=== PATIENT | female | born 1935 | race Asian ===

== ENCOUNTER 2017-09-02 18:52 | Inpatient (IN) | payer MEDICARE, MEDICAID ==
[~2017-09-02] VITALS: Ht 162.6 cm; Wt 49.9 kg
[2017-09-02] MEDS ORDERED: Isovue-300 100ml vial INJ PRN (19:45)
[2017-09-02] MEDS ORDERED: Ampicillin/Sulbactam Sod 3 GM in NS 110 ML IV SCH (19:45)
[2017-09-02] MEDS ORDERED: Pantoprazole Inj IVP ONE (20:15)
[2017-09-02] MEDS ORDERED: Aspirin Baby 81mg ORAL ONE (20:15)
[2017-09-02] MEDS ORDERED: Pantoprazole Inj ONE (20:18)
[2017-09-02] MEDS ORDERED: Aspirin Baby 81mg ONE (20:18)
[2017-09-02 20:26] LABS: BASOPHILS % (AUTO) 0.9 % (0.0-2.0); EOSINOPHILS % (AUTO) 0.8 % (0.0-3.0); HEMATOCRIT 34.1 % (37.0-47.0); HEMOGLOBIN 12.2 G/DL (12.0-16.0); LYMPHOCYTES % (AUTO) 19.9 % (20.0-45.0); MEAN CORPUSCULAR VOLUME 90 FL (80-99); MONOCYTES % (AUTO) 9.2 % (1.0-10.0); NEUTROPHILS % (AUTO) 69.2 % (45.0-75.0); PLATELET COUNT 202 K/UL (150-450); RED BLOOD COUNT 3.79 M/UL (4.20-5.40); RED CELL DISTRIBUTION WIDTH 11.7 % (11.6-14.8); WHITE BLOOD COUNT 6.5 K/UL (4.8-10.8)
[2017-09-02 20:35] VITALS: BP 121/48
[2017-09-02 20:43] LABS: ANION GAP 12 mmol/L (5-15); BLOOD UREA NITROGEN 26 mg/dL (7-18); CALCIUM 9.3 MG/DL (8.5-10.1); CARBON DIOXIDE 21 MMOL/L (21-32); CHLORIDE 103 MMOL/L (98-107); CREATININE 2.1 MG/DL (0.55-1.30); POTASSIUM 4.1 MMOL/L (3.5-5.1); SODIUM 136 MMOL/L (136-145)
[2017-09-02 20:57] LABS: ALANINE AMINOTRANSFERASE 22 U/L (12-78); ALBUMIN 3.3 G/DL (3.4-5.0); ALBUMIN/GLOBULIN RATIO 0.9 (1.0-2.7); ALKALINE PHOSPHATASE 46 U/L (46-116); ASPARTATE AMINO TRANSFERASE 15 U/L (15-37); BILIRUBIN,TOTAL 0.5 MG/DL (0.2-1.0); CKMB 0.7 NG/ML (0.0-3.6); CREATINE KINASE 38 U/L (26-308); PHOSPHORUS 4.1 MG/DL (2.5-4.9)
--- NOTE | 2017-09-02 21:28 | Diagnostic Imaging Report ---
EXAM: XR Chest, 1 View CLINICAL HISTORY: SOB TECHNIQUE: Frontal view of the chest. COMPARISON: No relevant prior studies available. FINDINGS: Lungs: Peribronchial thickening without infiltrate. Pleural space: Unremarkable. No pneumothorax. Heart: Unremarkable. No cardiomegaly. Mediastinum: Unremarkable. Bones/joints: Unremarkable. IMPRESSION: Peribronchial thickening without infiltrate.
[2017-09-02 21:35] VITALS: BP 114/49
[2017-09-02 21:53] LABS: APPEARANCE,URINE CLEAR; BILIRUBIN, URINE NEGATIVE (NEGATIVE); COLOR,URINE PALE YELLOW; GLUCOSE, URINE (UA) 4+ (NEGATIVE); KETONES,URINE NEGATIVE (NEGATIVE); LEUKOCYTE ESTERASE ,URINE 1+ (NEGATIVE); NITRITE,URINE NEGATIVE (NEGATIVE); PH,URINE 5 (4.5-8.0); PROTEIN,URINE 1+ (NEGATIVE); UROBILINOGEN,URINE NORMAL MG/DL (0.0-1.0)
--- NOTE | 2017-09-02 21:59 | Diagnostic Imaging Report ---
EXAM: CT Abdomen and Pelvis Without Intravenous Contrast CLINICAL HISTORY: PAIN TECHNIQUE: Axial computed tomography images of the abdomen and pelvis without intravenous contrast. CTDI is 19 mGy and DLP is 992 mGy-cm. One or more of the following dose reduction techniques were used: automated exposure control, adjustment of the mA and/or kV according to patient size, use of iterative reconstruction technique. COMPARISON: No relevant prior studies available. FINDINGS: Bibasilar peribronchial thickening. Cardiomegaly. Cholelithiasis. Liver, spleen, pancreas, and adrenals are unremarkable. Small amount of gas in the urinary bladder. No hydronephrosis or nephrolithiasis. Large duodenal diverticulum. No bowel obstruction or wall thickening. No ascites or pneumoperitoneum. No acute appendicitis. No adnexal mass. No acute fracture. No suspicious osseous lesions. No aortic aneurysm or lymphadenopathy. IMPRESSION: Cholelithiasis without evidence for cholecystitis or dilated CBD. Small amount of gas in the bladder is nonspecific but could represent infection.
[2017-09-02 22:25] VITALS: BP 145/67
[2017-09-02] MEDS: Heparin 5000 units/ml inj SUBQ SCH (22:44)
--- NOTE | 2017-09-02 23:04 | Emergency Room Report ---
History of Present Illness General Chief Complaint: Generalized Weakness Source: Patient, EMS Present Illness HPI Patient is an 82-year-old female brought in by EMS. The patient poorly has prior history of diabetes as well as high blood pressure. The patient was noted to be somewhat confused by her rim buster. The patient was subsequently brought to the hospital. She was noted to be hypotensive. Patient was started on IV fluids. Patient. He said been taking medications for blood pressure but does not recall the names. Patient had previous hospitalization approximately one year ago. Allergies: Coded Allergies: No Known Allergies (Unverified , 09/02/17) Patient History Reviewed Nursing Documentation: PMH: Agreed; PSxH: Agreed Nursing Documentation-PMH Hx Hypertension: Yes Hx Diabetes: Yes Hx Seizures: Yes Review of Systems All Other Systems: negative except mentioned in HPI Physical Exam Vital Signs Date Time Temp Pulse Resp B/P (MAP) Pulse Ox O2 Delivery O2 Flow Rate FiO2 09/02/17 18:40 98.4 86 16 106/46 98 Room Air 98.4 Sp02 EP Interpretation: reviewed, normal General Appearance: normal inspection, well appearing, no apparent distress, alert, GCS 15, non-toxic Head: atraumatic ENT: normal ENT inspection, hearing grossly normal, normal voice Neck: normal inspection, full range of motion, supple, no bony tend Respiratory: normal inspection, lungs clear, normal breath sounds, no respiratory distress, no retraction, no wheezing Cardiovascular #1: regular rate, rhythm, no edema Gastrointestinal: normal inspection, normal bowel sounds, non tender, soft, no guarding, no hernia Genitourinary: no CVA tenderness Musculoskeletal: normal inspection, back normal, normal range of motion Neurologic: normal inspection, alert, responsive, speech normal Psychiatric: normal inspection, judgement/insight normal, mood/affect normal Skin: normal inspection, normal color, no rash Medical Decision Making Diagnostic Impression: Primary Impression: Episode of generalized weakness Additional Impression: Hypotension ER Course Patient presented for generalized weakness. Differential diagnoses included was not limited to urinary tract infection, myocardial infarction, abdominal aneurysm, sepsis, dehydration among others.Because of complexity of patient's case laboratory testing and imaging studies were ordered. The EKG interpreted by me showed normal sinus rhythm. The patient was noted to have some the ST changes which do not appear to be dynamically changing. The patient's initial troponin was noted to be normal. Had denied any chest discomfort and was noted to be more alert after IV fluids. Patient denied any chest discomfort or abdominal discomfort when questioned by her relative. The patient was discussed with Dr. Elvis Parnell for Dr. Angulo Labs Test 09/02/17 20:10 09/02/17 21:00 White Blood Count 6.5 K/UL (4.8-10.8) Red Blood Count 3.79 M/UL (4.20-5.40) Hemoglobin 12.2 G/DL (12.0-16.0) Hematocrit 34.1 % (37.0-47.0) Mean Corpuscular Volume 90 FL (80-99) Mean Corpuscular Hemoglobin 32.3 PG (27.0-31.0) Mean Corpuscular Hemoglobin Concent 35.8 G/DL (32.0-36.0) Red Cell Distribution Width 11.7 % (11.6-14.8) Platelet Count 202 K/UL (150-450) Mean Platelet Volume 6.8 FL (6.5-10.1) Neutrophils (%) (Auto) 69.2 % (45.0-75.0) Lymphocytes (%) (Auto) 19.9 % (20.0-45.0) Monocytes (%) (Auto) 9.2 % (1.0-10.0) Eosinophils (%) (Auto) 0.8 % (0.0-3.0) Basophils (%) (Auto) 0.9 % (0.0-2.0) Sodium Level 136 MMOL/L (136-145) Potassium Level 4.1 MMOL/L (3.5-5.1) Chloride Level 103 MMOL/L (98-107) Carbon Dioxide Level 21 MMOL/L (21-32) Anion Gap 12 mmol/L (5-15) Blood Urea Nitrogen 26 mg/dL (7-18) Creatinine 2.1 MG/DL (0.55-1.30) Estimat Glomerular Filtration Rate mL/min (>60) Glucose Level 130 MG/DL (74-106) Lactic Acid Level 1.60 mmol/L (0.4-2.0) Calcium Level 9.3 MG/DL (8.5-10.1) Phosphorus Level 4.1 MG/DL (2.5-4.9) Magnesium Level 1.9 MG/DL (1.8-2.4) Total Bilirubin 0.5 MG/DL (0.2-1.0) Aspartate Amino Transf (AST/SGOT) 15 U/L (15-37) Alanine Aminotransferase (ALT/SGPT) 22 U/L (12-78) Alkaline Phosphatase 46 U/L (46-116) Total Creatine Kinase 38 U/L (26-308) Creatine Kinase MB 0.7 NG/ML (0.0-3.6) Creatine Kinase MB Relative Index 1.8 Troponin I 0.015 ng/mL (0.000-0.056) Total Protein 6.9 G/DL (6.4-8.2) Albumin 3.3 G/DL (3.4-5.0) Globulin 3.6 g/dL Albumin/Globulin Ratio 0.9 (1.0-2.7) Urine Color Pale yellow Urine Appearance Clear Urine pH 5 (4.5-8.0) Urine Specific [place] 1.015 (1.005-1.035) Urine Protein 1+ (NEGATIVE) Urine Glucose (UA) 4+ (NEGATIVE) Urine Ketones Negative (NEGATIVE) Urine Occult Blood Negative (NEGATIVE) Urine Nitrite Negative (NEGATIVE) Urine Bilirubin Negative (NEGATIVE) Urine Urobilinogen Normal MG/DL (0.0-1.0) Urine Leukocyte Esterase 1+ (NEGATIVE) Urine RBC 0-2 /HPF (0 - 2) Urine WBC 2-4 /HPF (0 - 2) Urine Squamous Epithelial Cells None /LPF (NONE/OCC) Urine Bacteria Occasional /HPF (NONE) EKG Diagnostic Results Rate: normal Rhythm: NSR ST Segments: other - nonspecific st changes, inferior st depression Last Vital Signs Date Time Temp Pulse Resp B/P (MAP) Pulse Ox O2 Delivery O2 Flow Rate FiO2 09/02/17 22:30 98.4 61 16 114/49 99 Room Air 98.4 Status: improved Disposition: ADMITTED INPATIENT Condition: Serious Referrals: NOT CHOSEN IPA/,REFERRING (PCP) Lit Rider MD Sep 02, 2017 23:03
[2017-09-02] MEDS ORDERED: Cefepime HCl 1 GM in D5W 55 ML IVPB SCH (23:45)
[2017-09-03] VITALS: BP 115/54
[2017-09-03] MEDS ORDERED: KEPPRA500 M4 ORAL (00:18)
[2017-09-03] MEDS ORDERED: AZOR 10-40 MG1 EACH ORAL (00:18)
[2017-09-03] MEDS ORDERED: JANUMET XR 1001 EACH ORAL (00:18)
[2017-09-03] MEDS ORDERED: AMITIZA24 MCG ORAL (00:18)
[2017-09-03] MEDS ORDERED: LINZESS290 MCG PO (00:18)
[2017-09-03] MEDS ORDERED: CATAPRES0.2 MG ORAL (00:18)
[2017-09-03] MEDS ORDERED: NAMZARIC 28 MG1 EACH PO (00:18)
[2017-09-03] MEDS ORDERED: Vancomycin 750mg/NS 250ml IVPB SCH (02:00)
[2017-09-03 03:53] VITALS: BP 121/59
[2017-09-03] MEDS: Heparin 5000 units/ml inj SUBQ SCH ×3 (05:42→21:04)
[2017-09-03 08:00] VITALS: BP 116/65
[2017-09-03] MEDS ORDERED: Aspirin Baby 81mg ORAL SCH (09:00)
[2017-09-03] MEDS ORDERED: Memantine 10mg tab ORAL SCH (09:00)
[2017-09-03] MEDS ORDERED: Amitiza 24mcg cap ORAL SCH (09:00)
[2017-09-03] MEDS ORDERED: NS 275ml ONE (09:27)
[2017-09-03 10:49] LABS: BASOPHILS % (AUTO) 1.3 % (0.0-2.0); EOSINOPHILS % (AUTO) 1.4 % (0.0-3.0); HEMATOCRIT 35.5 % (37.0-47.0); LYMPHOCYTES % (AUTO) 17.7 % (20.0-45.0); MEAN CORPUSCULAR VOLUME 93 FL (80-99); MONOCYTES % (AUTO) 8.7 % (1.0-10.0); PLATELET COUNT 202 K/UL (150-450); RED BLOOD COUNT 3.84 M/UL (4.20-5.40); WHITE BLOOD COUNT 4.7 K/UL (4.8-10.8)
[2017-09-03 10:54] LABS: ANION GAP 12 mmol/L (5-15); BLOOD UREA NITROGEN 20 mg/dL (7-18); CALCIUM 8.2 MG/DL (8.5-10.1); CARBON DIOXIDE 21 MMOL/L (21-32); CHLORIDE 106 MMOL/L (98-107); CREATININE 1.7 MG/DL (0.55-1.30); POTASSIUM 3.9 MMOL/L (3.5-5.1); SODIUM 138 MMOL/L (136-145)
[2017-09-03] MEDS ORDERED: NovoLOG Insulin Flexpen SUBQ SCH (11:30)
[2017-09-03 12:00] VITALS: BP 101/53
[2017-09-03] MEDS: NovoLOG Insulin Flexpen SUBQ SCH ×3 (12:01→21:10)
--- NOTE | 2017-09-03 12:22 | Infectious Diseases Prog Note ---
Assessment/Plan Problems: (1) Bronchitis Assessment & Plan: will start cefepime empirically to cover for UTI too , monitor CXR (2) UTI (urinary tract infection) Assessment & Plan: will start cefepime pending culture (3) Sepsis Assessment & Plan: due to the above, will start vancomycin with cefepime empirically pending blood culture (4) Hypotension Assessment & Plan: possbile sepsis, continue hydration and wide spectrum antibiotics pending culture (5) Episode of generalized weakness Assessment & Plan: due to the above , continue hydration , PT/OT Subjective Allergies: Coded Allergies: No Known Allergies (Unverified , 09/02/17) Objective Vital Signs Last 24 Hour Vital Signs Date Time Temp Pulse Resp B/P (MAP) Pulse Ox O2 Delivery O2 Flow Rate FiO2 09/03/17 09:00 63 116/65 09/03/17 08:00 75 09/03/17 08:00 97.7 63 21 116/65 (82) 95 97.7 09/03/17 08:00 Room Air 09/03/17 04:00 59 09/03/17 04:00 Room Air 09/03/17 03:53 97.2 60 20 121/59 (79) 98 97.2 09/03/17 00:00 55 09/03/17 00:00 97.7 54 20 115/54 (74) 97 97.7 09/03/17 00:00 Room Air 09/02/17 22:30 98.4 61 16 114/49 99 Room Air 98.4 09/02/17 22:29 64 09/02/17 22:25 Room Air 09/02/17 22:25 97.3 60 16 145/67 (93) 97.3 09/02/17 21:35 98.4 61 16 114/49 99 Room Air 98.4 09/02/17 20:35 98.4 59 16 121/48 100 Room Air 98.4 09/02/17 18:40 98.4 86 16 106/46 98 Room Air 98.4 Height (Feet): 5 Height (Inches): 4.00 Weight (Pounds): 110 Laboratory Tests Test 09/02/17 20:10 09/02/17 21:00 09/03/17 05:45 09/03/17 09:35 White Blood Count 6.5 K/UL (4.8-10.8) 4.7 K/UL (4.8-10.8) L Red Blood Count 3.79 M/UL (4.20-5.40) L 3.84 M/UL (4.20-5.40) L Hemoglobin 12.2 G/DL (12.0-16.0) 12.0 G/DL (12.0-16.0) Hematocrit 34.1 % (37.0-47.0) L 35.5 % (37.0-47.0) L Mean Corpuscular Volume 90 FL (80-99) 93 FL (80-99) Mean Corpuscular Hemoglobin 32.3 PG (27.0-31.0) H 31.3 PG (27.0-31.0) H Mean Corpuscular Hemoglobin Concent 35.8 G/DL (32.0-36.0) 33.8 G/DL (32.0-36.0) Red Cell Distribution Width 11.7 % (11.6-14.8) 12.0 % (11.6-14.8) Platelet Count 202 K/UL (150-450) 202 K/UL (150-450) Mean Platelet Volume 6.8 FL (6.5-10.1) 6.9 FL (6.5-10.1) Neutrophils (%) (Auto) 69.2 % (45.0-75.0) 71.0 % (45.0-75.0) Lymphocytes (%) (Auto) 19.9 % (20.0-45.0) L 17.7 % (20.0-45.0) L Monocytes (%) (Auto) 9.2 % (1.0-10.0) 8.7 % (1.0-10.0) Eosinophils (%) (Auto) 0.8 % (0.0-3.0) 1.4 % (0.0-3.0) Basophils (%) (Auto) 0.9 % (0.0-2.0) 1.3 % (0.0-2.0) Sodium Level 136 MMOL/L (136-145) 138 MMOL/L (136-145) Potassium Level 4.1 MMOL/L (3.5-5.1) 3.9 MMOL/L (3.5-5.1) Chloride Level 103 MMOL/L (98-107) 106 MMOL/L (98-107) Carbon Dioxide Level 21 MMOL/L (21-32) 21 MMOL/L (21-32) Anion Gap 12 mmol/L (5-15) 12 mmol/L (5-15) Blood Urea Nitrogen 26 mg/dL (7-18) H 20 mg/dL (7-18) H Creatinine 2.1 MG/DL (0.55-1.30) H 1.7 MG/DL (0.55-1.30) H Estimat Glomerular Filtration Rate mL/min (>60) mL/min (>60) Glucose Level 130 MG/DL (74-106) H 150 MG/DL (74-106) H Lactic Acid Level 1.60 mmol/L (0.4-2.0) Calcium Level 9.3 MG/DL (8.5-10.1) 8.2 MG/DL (8.5-10.1) L Phosphorus Level 4.1 MG/DL (2.5-4.9) Magnesium Level 1.9 MG/DL (1.8-2.4) Total Bilirubin 0.5 MG/DL (0.2-1.0) Aspartate Amino Transf (AST/SGOT) 15 U/L (15-37) Alanine Aminotransferase (ALT/SGPT) 22 U/L (12-78) Alkaline Phosphatase 46 U/L (46-116) Total Creatine Kinase 38 U/L (26-308) Creatine Kinase MB 0.7 NG/ML (0.0-3.6) Creatine Kinase MB Relative Index 1.8 Troponin I 0.015 ng/mL (0.000-0.056) 0.030 ng/mL (0.000-0.056) 0.014 ng/mL (0.000-0.056) Total Protein 6.9 G/DL (6.4-8.2) Albumin 3.3 G/DL (3.4-5.0) L Globulin 3.6 g/dL Albumin/Globulin Ratio 0.9 (1.0-2.7) L Urine Color Pale yellow Urine Appearance Clear Urine pH 5 (4.5-8.0) Urine Specific [place] 1.015 (1.005-1.035) Urine Protein 1+ (NEGATIVE) H Urine Glucose (UA) 4+ (NEGATIVE) H Urine Ketones Negative (NEGATIVE) Urine Occult Blood Negative (NEGATIVE) Urine Nitrite Negative (NEGATIVE) Urine Bilirubin Negative (NEGATIVE) Urine Urobilinogen Normal MG/DL (0.0-1.0) Urine Leukocyte Esterase 1+ (NEGATIVE) H Urine RBC 0-2 /HPF (0 - 2) Urine WBC 2-4 /HPF (0 - 2) Urine Squamous Epithelial Cells None /LPF (NONE/OCC) Urine Bacteria Occasional /HPF (NONE) Current Medications Medications (Trade) Dose Ordered Sig/Monica Route PRN Reason Start Time Stop Time Status Last Admin Dose Admin Acetaminophen (Tylenol) 650 mg Q4H PRN ORAL Mild Pain (Pain Scale 1-3) 09/03/17 11:00 10/02/17 10:59 Amlodipine Besylate (Norvasc) 10 mg DAILY ORAL 09/04/17 09:00 10/03/17 08:59 Aspirin (ASA) 81 mg DAILY ORAL 09/04/17 09:00 10/03/17 08:59 Cefepime HCl 500 mg/Dextrose 55 ml @ 110 mls/hr Q24H IVPB 09/03/17 23:30 09/10/17 23:29 Dextrose (Dextrose 50%) 25 ml STAT PRN IV Hypoglycemia 09/03/17 11:00 10/02/17 10:59 Dextrose (Dextrose 50%) 50 ml STAT PRN IV Hypoglycemia 09/03/17 11:00 10/02/17 10:59 Diphenhydramine HCl (Benadryl) 25 mg Q6H PRN ORAL Itching/Pruritis 09/03/17 11:00 10/02/17 10:59 Donepezil HCl (Aricept) 10 mg QHS ORAL 09/03/17 21:00 10/03/17 20:59 Heparin Sodium (Porcine) (Heparin 5000 units/ml) 5,000 units EVERY 8 HOURS SUBQ 09/03/17 14:00 10/02/17 21:59 Insulin Aspart (NovoLOG) BEFORE MEALS AND HS SUBQ 09/03/17 11:30 10/03/17 11:29 09/03/17 12:01 Levetiracetam (Keppra) 500 mg Q12HR ORAL 09/03/17 21:00 10/03/17 08:59 Lubiprostone (Amitiza) 24 mcg TWICE A DAY ORAL 09/03/17 18:00 10/03/17 08:59 Memantine (Namenda) 10 mg DAILY ORAL 09/04/17 09:00 10/03/17 08:59 Ondansetron HCl (Zofran) 4 mg Q6H PRN IVP Nausea & Vomiting 09/03/17 11:00 10/02/17 10:59 Sodium Chloride 1,000 ml @ 100 mls/hr Q10H IVLG 09/03/17 10:30 10/02/17 22:59 09/03/17 12:01 Vancomycin HCl (Vanco rx to dose) 1 ea DAILY PRN MISC Per rx protocol 09/04/17 09:00 10/02/17 22:44 Vancomycin/Sodium Chloride 250 ml @ 166.667 mls/hr Q48H IVPB 09/05/17 02:00 09/08/17 01:59 Nandini Sosa M.D. Sep 03, 2017 12:22
--- NOTE | 2017-09-03 13:01 | Diagnostic Imaging Report ---
EXAM: US Retroperitoneal Limited, Renal CLINICAL HISTORY: RENAL-A TECHNIQUE: Real-time ultrasound of the retroperitoneum (limited) with image documentation. COMPARISON: CT of the abdomen and pelvis dated FINDINGS: Right kidney: The right kidney measures 8.6 x 4.4 x 3.3 cm. Subcentimeter simple-appearing cortical cyst in the right kidney, measuring 10 mm and 9 mm in diameter respectively. No stones. No hydronephrosis. Left kidney: Small simple appearing cortical cysts are seen in the mid left kidney, measuring 12 mm and 9 mm respectively. Left kidney measures 10.3 x 5.4 x 5.1 cm. No stones. No hydronephrosis. Bladder: Doppler interrogation demonstrates bilateral ureteral jets within the urinary bladder lumen. Prevoid urinary bladder volume of 423 cc. Postvoid urinary bladder volume of 350 cc. IMPRESSION: Bilateral simple-appearing renal cortical cysts, largest measuring 12 mm in the mid left kidney.
--- NOTE | 2017-09-03 14:34 | Cardiac Electrophysiology PN ---
Subjective Subjective [id number] Objective Last 24 Hour Vital Signs Date Time Temp Pulse Resp B/P (MAP) Pulse Ox O2 Delivery O2 Flow Rate FiO2 09/03/17 12:00 97.7 69 18 101/53 (69) 97 97.7 09/03/17 09:00 63 116/65 09/03/17 08:00 75 09/03/17 08:00 97.7 63 21 116/65 (82) 95 97.7 09/03/17 08:00 Room Air 09/03/17 04:00 59 09/03/17 04:00 Room Air 09/03/17 03:53 97.2 60 20 121/59 (79) 98 97.2 09/03/17 00:00 55 09/03/17 00:00 97.7 54 20 115/54 (74) 97 97.7 09/03/17 00:00 Room Air 09/02/17 22:30 98.4 61 16 114/49 99 Room Air 98.4 09/02/17 22:29 64 09/02/17 22:25 Room Air 09/02/17 22:25 97.3 60 16 145/67 (93) 97.3 09/02/17 21:35 98.4 61 16 114/49 99 Room Air 98.4 09/02/17 20:35 98.4 59 16 121/48 100 Room Air 98.4 09/02/17 18:40 98.4 86 16 106/46 98 Room Air 98.4 Intake and Output 09/02/17 09/03/17 19:00 07:00 Intake Total 3293.334 ml Output Total 800 ml Balance 2493.334 ml Intake Oral 490 ml IV Total 2803.334 ml Output Urine Total 800 ml # Voids 3 Laboratory Tests Test 09/02/17 20:10 09/02/17 21:00 09/03/17 05:45 09/03/17 09:35 White Blood Count 6.5 K/UL (4.8-10.8) 4.7 K/UL (4.8-10.8) L Red Blood Count 3.79 M/UL (4.20-5.40) L 3.84 M/UL (4.20-5.40) L Hemoglobin 12.2 G/DL (12.0-16.0) 12.0 G/DL (12.0-16.0) Hematocrit 34.1 % (37.0-47.0) L 35.5 % (37.0-47.0) L Mean Corpuscular Volume 90 FL (80-99) 93 FL (80-99) Mean Corpuscular Hemoglobin 32.3 PG (27.0-31.0) H 31.3 PG (27.0-31.0) H Mean Corpuscular Hemoglobin Concent 35.8 G/DL (32.0-36.0) 33.8 G/DL (32.0-36.0) Red Cell Distribution Width 11.7 % (11.6-14.8) 12.0 % (11.6-14.8) Platelet Count 202 K/UL (150-450) 202 K/UL (150-450) Mean Platelet Volume 6.8 FL (6.5-10.1) 6.9 FL (6.5-10.1) Neutrophils (%) (Auto) 69.2 % (45.0-75.0) 71.0 % (45.0-75.0) Lymphocytes (%) (Auto) 19.9 % (20.0-45.0) L 17.7 % (20.0-45.0) L Monocytes (%) (Auto) 9.2 % (1.0-10.0) 8.7 % (1.0-10.0) Eosinophils (%) (Auto) 0.8 % (0.0-3.0) 1.4 % (0.0-3.0) Basophils (%) (Auto) 0.9 % (0.0-2.0) 1.3 % (0.0-2.0) Sodium Level 136 MMOL/L (136-145) 138 MMOL/L (136-145) Potassium Level 4.1 MMOL/L (3.5-5.1) 3.9 MMOL/L (3.5-5.1) Chloride Level 103 MMOL/L (98-107) 106 MMOL/L (98-107) Carbon Dioxide Level 21 MMOL/L (21-32) 21 MMOL/L (21-32) Anion Gap 12 mmol/L (5-15) 12 mmol/L (5-15) Blood Urea Nitrogen 26 mg/dL (7-18) H 20 mg/dL (7-18) H Creatinine 2.1 MG/DL (0.55-1.30) H 1.7 MG/DL (0.55-1.30) H Estimat Glomerular Filtration Rate mL/min (>60) mL/min (>60) Glucose Level 130 MG/DL (74-106) H 150 MG/DL (74-106) H Lactic Acid Level 1.60 mmol/L (0.4-2.0) Calcium Level 9.3 MG/DL (8.5-10.1) 8.2 MG/DL (8.5-10.1) L Phosphorus Level 4.1 MG/DL (2.5-4.9) Magnesium Level 1.9 MG/DL (1.8-2.4) Total Bilirubin 0.5 MG/DL (0.2-1.0) Aspartate Amino Transf (AST/SGOT) 15 U/L (15-37) Alanine Aminotransferase (ALT/SGPT) 22 U/L (12-78) Alkaline Phosphatase 46 U/L (46-116) Total Creatine Kinase 38 U/L (26-308) Creatine Kinase MB 0.7 NG/ML (0.0-3.6) Creatine Kinase MB Relative Index 1.8 Troponin I 0.015 ng/mL (0.000-0.056) 0.030 ng/mL (0.000-0.056) 0.014 ng/mL (0.000-0.056) Total Protein 6.9 G/DL (6.4-8.2) Albumin 3.3 G/DL (3.4-5.0) L Globulin 3.6 g/dL Albumin/Globulin Ratio 0.9 (1.0-2.7) L Urine Color Pale yellow Urine Appearance Clear Urine pH 5 (4.5-8.0) Urine Specific [place] 1.015 (1.005-1.035) Urine Protein 1+ (NEGATIVE) H Urine Glucose (UA) 4+ (NEGATIVE) H Urine Ketones Negative (NEGATIVE) Urine Occult Blood Negative (NEGATIVE) Urine Nitrite Negative (NEGATIVE) Urine Bilirubin Negative (NEGATIVE) Urine Urobilinogen Normal MG/DL (0.0-1.0) Urine Leukocyte Esterase 1+ (NEGATIVE) H Urine RBC 0-2 /HPF (0 - 2) Urine WBC 2-4 /HPF (0 - 2) Urine Squamous Epithelial Cells None /LPF (NONE/OCC) Urine Bacteria Occasional /HPF (NONE) David Couch MD Sep 03, 2017 14:34
[2017-09-03 16:00] VITALS: BP 121/51
[2017-09-03] MEDS: Amitiza 24mcg cap ORAL SCH (17:04)
--- NOTE | 2017-09-03 17:15 | History and Physical Report ---
DATE OF ADMISSION: 09/02/2017 REASON FOR ADMISSION: 1. Hypotension. 2. Possible sepsis. HISTORY OF PRESENT ILLNESS: The patient is an 82-year-old female brought in by EMS. The patient was found to be hypotensive and had been initiated on IV fluids. She had previously been at a another hospital prior to this admission. History is difficult to obtain as the patient is Icelandic speaking only. As such, it was obtained through electronic chart review and discussion with ER physician. Creatinine was 2.1. Baseline unknown. The patient was admitted overnight and stabilized. Currently doing well. No nausea, vomiting, diarrhea, or chest pain. ALLERGIES: No known drug allergies. PAST MEDICAL HISTORY: 1. Seizures. 2. Diabetes mellitus. 3. Hypertension. 4. Coronary artery disease. FAMILY HISTORY: Positive for hypertension and diabetes. REVIEW OF SYSTEMS: Cannot obtain as the patient does not speak Kiswahili. PAST SURGICAL HISTORY: Unknown. LABORATORY DATA: Labs dated 09/02/2017, sodium 136, potassium 4.1, BUN 26, and creatinine 2.1, glucose 130, calcium 9.3, phosphorus 4.1, magnesium 1.9. Troponin 0.030. WBC 6.5, hemoglobin 12.2, and platelet count 302. PHYSICAL EXAMINATION: VITAL SIGNS: Blood pressure 121/59, respiratory rate 20, pulse 60, temperature 97.2, and 98% on room air. GENERAL: The patient awake, doing well, in no overt distress. HEENT: Extraocular muscles intact. No lymphadenopathy. Oropharyngeal mucosa is clear and dry. CARDIOVASCULAR: S1, S2. No rubs or gallops. PULMONARY: Clear to auscultation bilaterally. No rales, rhonchi, or wheezes. ABDOMINAL: Nontender and nondistended. EXTREMITIES: No edema. ASSESSMENT AND PLAN: 1. Hypotension and sepsis. The patient has been initiated on IV fluids and Infectious Disease consulted to manage IV antibiotics. The patient doing well, hemodynamically stable, and will be transferred to med/surg floor. 2. Acute kidney injury versus chronic kidney disease. Creatinine 2.1. The patient has been initiated on IV fluids and a.m. laboratories are pending. Renal ultrasound to rule out the possibility of obstructive uropathy. 3. Coronary artery disease. EKG changes noted. Cardiology consulted for further evaluation and management. 4. Diabetes mellitus. Continue low-carbohydrate diet with insulin sliding scale. 5. Deep venous thrombosis prophylaxis with heparin subcutaneous due to elevated creatinine. Elvis Parnell MD DR: PRINCESS JOB#: [id number] CC:
--- NOTE | 2017-09-03 19:30 | Consultation ---
DATE OF CONSULTATION: 09/03/2017 CARDIOLOGY CONSULTATION CONSULTING PHYSICIAN: David Couch M.D. REFERRING PHYSICIAN: Ambrocio Braun M.D. REASON FOR CONSULTATION: Generalized weakness. HISTORY OF PRESENT ILLNESS: The patient is an 82-year-old lady who was brought by paramedics for being confused . The patient has hypertension, history of diabetes, and seizure disorder. The patient was noted to be hypotensive and started on IV fluids and was admitted. Cardiology consultation was obtained for further evaluation. At the time of my evaluation, the patient denies any chest pain, palpitation, or shortness of breath. REVIEW OF SYSTEMS: Negative other than what was mentioned in history of present illness. PAST MEDICAL HISTORY: Includes: 1. Hypertension. 2. Diabetes. 3. History of seizures. FAMILY HISTORY: Noncontributory. SOCIAL HISTORY: She lives at home. Does not smoke or drink alcohol. PHYSICAL EXAMINATION: VITAL SIGNS: Blood pressure is 101/52, pulse 69, respirations 18, and temperature 97.7. HEAD AND NECK: Showed no JVD or carotid bruits. LUNGS: Clear. CARDIOVASCULAR: Shows regular S1 and S2 with no gallop or murmur. ABDOMEN: Soft and nontender. EXTREMITIES: No pitting edema. LABORATORY AND DIAGNOSTIC DATA: Her EKG shows normal sinus rhythm with nonspecific anterior abnormalities. Initial EKG was read by mistake as an acute STEMI in the lateral wall. LABORATORY DATA: Labs show white count of 4.7, hemoglobin 12, hematocrit 35.5, and platelet count 202,000. Sodium 138, potassium 3.9, BUN of 20, creatinine 1.7, glucose of 120. Troponin negative x3. ASSESSMENT AND PLAN: 1. Generalized weakness. The patient was ruled out for myocardial infarction with serial cardiac enzymes. Likely due to dehydration due to heat stroke. 2. Hypertension. Resume Norvasc 10 mg daily, probably resumed. 3. Diabetes, on insulin. 4. History of seizures, on Keppra. 5. History of dementia, on Aricept. 6. Bronchitis and UTI. Started on cefepime per Dr. Sosa. Thank you very much, Dr. Braun, for allowing me to participate in the care of this patient. Please do not hesitate to contact me for any questions regarding my evaluation. David Couch M.D. DR: Wilver JOB#: [id number] CC:
[2017-09-03 20:00] VITALS: BP 113/52
[2017-09-03] MEDS ORDERED: Donepezil 10mg tab ORAL SCH (21:00)
[2017-09-03] MEDS: Donepezil 10mg tab ORAL SCH (21:03)
--- NOTE | 2017-09-03 21:15 | Consultation ---
DATE OF CONSULTATION: 09/03/2017 INFECTIOUS DISEASES CONSULTATION CONSULTING PHYSICIAN: Nandini Sosa M.D. REQUESTING PHYSICIAN: Elvis Parnell M.D. REASON FOR CONSULTATION: Sepsis, UTI with bronchitis, and hypotension. Recommendation for antibiotics treatment. 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 The patient was found to be hypotensive, which was concerning for sepsis. She was started on IV fluid for hydration. The patient has been recently taking her blood pressure medication, but she did not recall when she was taking. In the emergency room, she had temperature of 98.4 degrees with pulse oximetry of 98% on room air. Urinalysis showed evidence of infection. Chest x-ray showed peribronchial thickening without infiltrate suspicious for bronchitis, so Infectious Disease consultation was requested for further evaluation and management of possible sepsis, UTI, and bronchitis. As of note, the patient is a poor historian and could not provide good history. History was mainly obtained from the medical record. PAST MEDICAL HISTORY: Significant for hypertension, diabetes, and seizure disorder. PAST SURGICAL HISTORY: Not on record. MEDICATIONS: She is on Norvasc, aspirin, Namenda, Keppra, Amitiza, heparin, NovoLog, Tylenol, and Zofran. ALLERGIES: No known drug allergy. SOCIAL HISTORY: The patient lives at home with caregiver. No recent drugs, tobacco, or alcohol. REVIEW OF SYSTEMS: Unable to obtain. The patient is a poor historian and cannot provide good history. PHYSICAL EXAMINATION: VITAL SIGNS: Temperature 97.7 degrees, pulse 69, respirations 18, blood pressure 101/53, and saturation 97% on room air. GENERAL: An elderly female, lying in bed, awake, responsive, not in distress. HEENT: Normocephalic and atraumatic. Pupils reactive to light equally. Moist oral mucosa. No exudate. NECK: Supple. No lymphadenopathy. CARDIOVASCULAR: Regular rate and rhythm. No murmur. LUNGS: She had diminished breathing sounds at the bases with fine crackles. No wheezing. No rhonchi. Normal breathing efforts. ABDOMEN: Soft, nontender, and nondistended. Normal bowel sounds. No hepatosplenomegaly. No ascites. EXTREMITIES: No edema or cyanosis. SKIN: No rash. No hives. LABORATORY AND DIAGNOSTIC DATA: Showed white count of 4.7, hemoglobin of 12, and platelet count of 202,000. BUN of 20 and creatinine of 1.7. Urinalysis showed +1 leukocyte esterase. Imaging, chest x-ray on admission showed peribronchial thickening without infiltrate. CT scan of abdomen and pelvis showed cholelithiasis without evidence of cholecystitis or dilated common bile duct. A small amount of gas in the bladder, nonspecific. Renal ultrasound showed bilateral simple-appearing renal cortical cysts, the largest measured 12 mm in the mid left kidney. ASSESSMENT AND RECOMMENDATION: 1. Bronchitis. We will start cefepime empirically to cover for UTI too and monitor chest x-ray. 2. UTI. We will start cefepime pending culture. 3. Sepsis due to the above. We will start vancomycin and cefepime empirically pending blood culture results. We will deescalate antibiotics if blood culture is negative. 4. Hypotension, possible sepsis. Continue hydration and wide-spectrum antibiotics pending culture. 5. Episode of generalized weakness due to the above. Continue hydration. Recommend PT and OT evaluation. Thank you for the consult. ID will continue to follow. Nandini Sosa M.D. DR: Steffany JOB#: [id number] CC:
[2017-09-03] MEDS ORDERED: Cefepime 500mg in D5W 55ml IVPB SCH (23:30)
[2017-09-03] MEDS: Cefepime HCl 500 MG in D5W 55 ML IVPB SCH (23:35)
[2017-09-04] VITALS: BP 117/54
[2017-09-04 04:00] VITALS: BP 152/72
[2017-09-04] MEDS: NovoLOG Insulin Flexpen SUBQ SCH ×4 (06:20→22:05)
[2017-09-04] MEDS: Heparin 5000 units/ml inj SUBQ SCH ×3 (06:23→22:05)
[2017-09-04 08:00] VITALS: BP 129/56
[2017-09-04] MEDS: Aspirin Baby 81mg ORAL SCH (08:11)
[2017-09-04] MEDS: Amitiza 24mcg cap ORAL SCH ×2 (08:11→17:56)
[2017-09-04] MEDS: Memantine 10mg tab ORAL SCH (08:11)
[2017-09-04 08:32] LABS: BASOPHILS % (AUTO) 1.2 % (0.0-2.0); EOSINOPHILS % (AUTO) 2.2 % (0.0-3.0); HEMATOCRIT 31.5 % (37.0-47.0); HEMOGLOBIN 11.2 G/DL (12.0-16.0); MEAN CORPUSCULAR VOLUME 93 FL (80-99); NEUTROPHILS % (AUTO) 65.7 % (45.0-75.0); PLATELET COUNT 173 K/UL (150-450); RED BLOOD COUNT 3.38 M/UL (4.20-5.40); RED CELL DISTRIBUTION WIDTH 11.7 % (11.6-14.8); WHITE BLOOD COUNT 5.1 K/UL (4.8-10.8)
[2017-09-04 09:02] LABS: ANION GAP 10 mmol/L (5-15); BLOOD UREA NITROGEN 16 mg/dL (7-18); CALCIUM 8.1 MG/DL (8.5-10.1); CARBON DIOXIDE 20 MMOL/L (21-32); CHLORIDE 111 MMOL/L (98-107); CREATININE 1.5 MG/DL (0.55-1.30); POTASSIUM 3.5 MMOL/L (3.5-5.1); SODIUM 140 MMOL/L (136-145)
--- NOTE | 2017-09-04 09:41 | Nephrology Progress Note ---
Assessment/Plan Assessment/Plan 1. VASHTI- due to hypotension - resolving, BP stable and Cr down to 1.5 - Renal US neg, simple renal cysts 2. Sepsis- Abx mgmt per ID 3. Hypotension- resolved, now hypertensive - Norvasc. DC IVF's 4. CAD- mgmt per Cardiology. ECHO being done today 5. DVT prophylaxsis with heparin Plan for DC tomorrow Subjective Date patient seen: Sep 04, 2017 Time patient seen: 09:34 ROS Limited/Unobtainable: No Allergies: Coded Allergies: No Known Allergies (Unverified , 09/02/17) All Systems: reviewed and negative except above Subjective Patient doing well. In no distress Objective Last 24 Hour Vital Signs Date Time Temp Pulse Resp B/P (MAP) Pulse Ox O2 Delivery O2 Flow Rate FiO2 09/04/17 09:00 Room Air 09/04/17 08:11 72 152/72 09/04/17 04:00 97.9 72 18 152/72 (98) 93 97.9 09/04/17 00:00 98.4 65 18 117/54 (75) 97 98.4 09/03/17 21:00 Room Air 09/03/17 20:00 99.3 64 18 113/52 (72) 94 99.3 09/03/17 16:00 98.1 65 19 121/51 (74) 97 98.1 09/03/17 12:00 97.7 69 18 101/53 (69) 97 97.7 Intake and Output 09/03/17 09/04/17 19:00 07:00 Intake Total 1180 ml 1240 ml Balance 1180 ml 1240 ml Intake Oral 480 ml 240 ml IV Total 700 ml 1000 ml # Voids 2 4 Laboratory Tests 09/03/17 09:35: White Blood Count 4.7L, Red Blood Count 3.84L, Hemoglobin 12.0, Hematocrit 35.5L , Mean Corpuscular Volume 93, Mean Corpuscular Hemoglobin 31.3H, Mean Corpuscular Hemoglobin Concent 33.8, Red Cell Distribution Width 12.0, Platelet Count 202, Mean Platelet Volume 6.9, Neutrophils (%) (Auto) 71.0, Lymphocytes (% ) (Auto) 17.7L, Monocytes (%) (Auto) 8.7, Eosinophils (%) (Auto) 1.4, Basophils (%) (Auto) 1.3, Sodium Level 138, Potassium Level 3.9, Chloride Level 106, Carbon Dioxide Level 21, Anion Gap 12, Blood Urea Nitrogen 20H, Creatinine 1.7H , Estimat Glomerular Filtration Rate , Glucose Level 150H, Calcium Level 8.2L, Troponin I 0.014 09/04/17 06:45: White Blood Count 5.1, Red Blood Count 3.38L, Hemoglobin 11.2L, Hematocrit 31.5L , Mean Corpuscular Volume 93, Mean Corpuscular Hemoglobin 33.1H, Mean Corpuscular Hemoglobin Concent 35.5, Red Cell Distribution Width 11.7, Platelet Count 173, Mean Platelet Volume 6.6, Neutrophils (%) (Auto) 65.7, Lymphocytes (% ) (Auto) 23.0, Monocytes (%) (Auto) 8.0, Eosinophils (%) (Auto) 2.2, Basophils ( %) (Auto) 1.2, Sodium Level 140, Potassium Level 3.5, Chloride Level 111H, Carbon Dioxide Level 20L, Anion Gap 10, Blood Urea Nitrogen 16, Creatinine 1.5H , Estimat Glomerular Filtration Rate , Glucose Level 96, Calcium Level 8.1L, Thyroid Stimulating Hormone (TSH) 4.567H, Free Thyroxine 1.06 Height (Feet): 5 Height (Inches): 4.00 Weight (Pounds): 110 General Appearance: no apparent distress EENT: normal ENT inspection Neck: normal alignment, supple Cardiovascular: normal rate, regular rhythm Respiratory/Chest: lungs clear, normal breath sounds Abdomen: normal bowel sounds, non tender, soft Edema: no edema noted Arm (L), no edema noted Arm (R), no edema noted Leg (L), no edema noted Leg (R), no edema noted Pedal (L), no edema noted Pedal (R), no edema noted Generalized Elvis Parnell M.D. Sep 04, 2017 09:41
[2017-09-04 11:31] VITALS: BP 161/77
--- NOTE | 2017-09-04 14:01 | Infectious Diseases Prog Note ---
Assessment/Plan Problems: (1) Bronchitis Assessment & Plan: continue cefepime empirically to cover for UTI too , monitor CXR (2) UTI (urinary tract infection) Assessment & Plan: on cefepime pending culture (3) Sepsis Assessment & Plan: due to the above, on vancomycin with cefepime empirically pending blood culture (4) Hypotension Assessment & Plan: possbile sepsis, continue hydration and wide spectrum antibiotics pending culture (5) Episode of generalized weakness Assessment & Plan: due to the above , continue hydration , PT/OT Subjective Constitutional: Reports: no symptoms HEENT: Reports: no symptoms Respiratory: Reports: no symptoms Breasts: Reports: no symptoms Cardiovascular: Reports: no symptoms Gastrointestinal/Abdominal: Reports: no symptoms Genitourinary: Reports: no symptoms Neurologic: Reports: no symptoms Psychiatric: Reports: no symptoms Skin: Reports: no symptoms Endocrine: Reports: no symptoms Hematologic: Reports: no symptoms Musculoskeletal: Reports: no symptoms Allergies: Coded Allergies: No Known Allergies (Unverified , 09/02/17) Objective Vital Signs Last 24 Hour Vital Signs Date Time Temp Pulse Resp B/P (MAP) Pulse Ox O2 Delivery O2 Flow Rate FiO2 09/04/17 11:31 97.5 79 18 161/77 (105) 97 97.5 09/04/17 09:00 Room Air 09/04/17 08:11 72 152/72 09/04/17 08:00 97.1 72 18 129/56 (80) 97 97.1 09/04/17 04:00 97.9 72 18 152/72 (98) 93 97.9 09/04/17 00:00 98.4 65 18 117/54 (75) 97 98.4 09/03/17 21:00 Room Air 09/03/17 20:00 99.3 64 18 113/52 (72) 94 99.3 09/03/17 16:00 98.1 65 19 121/51 (74) 97 98.1 Height (Feet): 5 Height (Inches): 4.00 Weight (Pounds): 110 General Appearance: WD/WN, no acute distress HEENT: normocephalic, atraumatic, anicteric, mucous membranes moist Respiratory/Chest: chest wall non-tender, lungs clear, normal breath sounds, no respiratory distress, no accessory muscle use Cardiovascular: normal peripheral pulses, normal rate, regular rhythm, no gallop/murmur, no JVD Abdomen: normal bowel sounds, soft, non tender, no organomegaly, non distended , no mass, no scars Extremities: no cyanosis, no clubbing Skin: no rash, no lesions, no ulcers Neurologic/Psychiatric: alert, responsive Lymphatic: no neck adenopathy, no groin adenopathy Musculoskeletal: normal muscle bulk, no effusion Microbiology Date/Time Source Procedure Growth Status 09/02/17 20:15 Blood Blood Culture - Preliminary NO GROWTH AFTER 24 HOURS Resulted 09/02/17 19:55 Blood Blood Culture - Preliminary NO GROWTH AFTER 24 HOURS Resulted 09/03/17 13:10 Urine,Clean Catch Urine Culture - Preliminary NO GROWTH Resulted 09/02/17 22:30 Rectum VRE Culture - Final Enterococcus Faecalis - Vre Resulted 09/02/17 22:30 Rectum Pending Resulted Laboratory Tests Test 09/04/17 06:45 White Blood Count 5.1 K/UL (4.8-10.8) Red Blood Count 3.38 M/UL (4.20-5.40) L Hemoglobin 11.2 G/DL (12.0-16.0) L Hematocrit 31.5 % (37.0-47.0) L Mean Corpuscular Volume 93 FL (80-99) Mean Corpuscular Hemoglobin 33.1 PG (27.0-31.0) H Mean Corpuscular Hemoglobin Concent 35.5 G/DL (32.0-36.0) Red Cell Distribution Width 11.7 % (11.6-14.8) Platelet Count 173 K/UL (150-450) Mean Platelet Volume 6.6 FL (6.5-10.1) Neutrophils (%) (Auto) 65.7 % (45.0-75.0) Lymphocytes (%) (Auto) 23.0 % (20.0-45.0) Monocytes (%) (Auto) 8.0 % (1.0-10.0) Eosinophils (%) (Auto) 2.2 % (0.0-3.0) Basophils (%) (Auto) 1.2 % (0.0-2.0) Sodium Level 140 MMOL/L (136-145) Potassium Level 3.5 MMOL/L (3.5-5.1) Chloride Level 111 MMOL/L (98-107) H Carbon Dioxide Level 20 MMOL/L (21-32) L Anion Gap 10 mmol/L (5-15) Blood Urea Nitrogen 16 mg/dL (7-18) Creatinine 1.5 MG/DL (0.55-1.30) H Estimat Glomerular Filtration Rate mL/min (>60) Glucose Level 96 MG/DL (74-106) Calcium Level 8.1 MG/DL (8.5-10.1) L Thyroid Stimulating Hormone (TSH) 4.567 uiU/mL (0.358-3.740) Free Thyroxine 1.06 NG/DL (0.76-1.46) Current Medications Medications (Trade) Dose Ordered Sig/Monica Route PRN Reason Start Time Stop Time Status Last Admin Dose Admin Acetaminophen (Tylenol) 650 mg Q4H PRN ORAL Mild Pain (Pain Scale 1-3) 09/03/17 11:00 10/02/17 10:59 Amlodipine Besylate (Norvasc) 10 mg DAILY ORAL 09/04/17 09:00 10/03/17 08:59 09/04/17 08:11 Aspirin (ASA) 81 mg DAILY ORAL 09/04/17 09:00 10/03/17 08:59 09/04/17 08:11 Cefepime HCl 500 mg/Dextrose 55 ml @ 110 mls/hr Q24H IVPB 09/03/17 23:30 09/10/17 23:29 09/03/17 23:35 Dextrose (Dextrose 50%) 25 ml STAT PRN IV Hypoglycemia 09/03/17 11:00 10/02/17 10:59 Dextrose (Dextrose 50%) 50 ml STAT PRN IV Hypoglycemia 09/03/17 11:00 10/02/17 10:59 Diphenhydramine HCl (Benadryl) 25 mg Q6H PRN ORAL Itching/Pruritis 09/03/17 11:00 10/02/17 10:59 Donepezil HCl (Aricept) 10 mg QHS ORAL 09/03/17 21:00 10/03/17 20:59 09/03/17 21:03 Heparin Sodium (Porcine) (Heparin 5000 units/ml) 5,000 units EVERY 8 HOURS SUBQ 09/03/17 14:00 10/02/17 21:59 09/04/17 06:23 Insulin Aspart (NovoLOG) BEFORE MEALS AND HS SUBQ 09/03/17 11:30 10/03/17 11:29 09/04/17 12:29 Levetiracetam (Keppra) 500 mg Q12HR ORAL 09/03/17 21:00 10/03/17 08:59 09/04/17 08:11 Lubiprostone (Amitiza) 24 mcg TWICE A DAY ORAL 09/03/17 18:00 10/03/17 08:59 09/04/17 08:11 Memantine (Namenda) 10 mg DAILY ORAL 09/04/17 09:00 10/03/17 08:59 09/04/17 08:11 Ondansetron HCl (Zofran) 4 mg Q6H PRN IVP Nausea & Vomiting 09/03/17 11:00 10/02/17 10:59 Sodium Chloride 1,000 ml @ 100 mls/hr Q10H IVLG 09/03/17 10:30 10/02/17 22:59 09/04/17 06:23 Vancomycin HCl (Vanco rx to dose) 1 ea DAILY PRN MISC Per rx protocol 09/04/17 09:00 10/02/17 22:44 Vancomycin/Sodium Chloride 250 ml @ 166.667 mls/hr Q48H IVPB 09/05/17 02:00 09/08/17 01:59 Nandini Sosa M.D. Sep 04, 2017 14:01
--- NOTE | 2017-09-04 15:06 | Cardiac Electrophysiology PN ---
Assessment/Plan Assessment/Plan 1. Generalized weakness. Ruled out for myocardial infarction.Likely due to dehydration due to heat stroke. 2. Hypertension. On Norvasc 10 mg daily. Add lisinopril 10 daily and prn Clonidine 3. Diabetes, on insulin. 4. History of seizures, on Keppra. 5. History of dementia, on Aricept. 6. Bronchitis and UTI. On cefepime per Dr. Sosa. MIRTHA RN Subjective Subjective Wants to go home. No CP or SOB. BP running high Objective Last 24 Hour Vital Signs Date Time Temp Pulse Resp B/P (MAP) Pulse Ox O2 Delivery O2 Flow Rate FiO2 09/04/17 11:31 97.5 79 18 161/77 (105) 97 97.5 09/04/17 09:00 Room Air 09/04/17 08:11 72 152/72 09/04/17 08:00 97.1 72 18 129/56 (80) 97 97.1 09/04/17 04:00 97.9 72 18 152/72 (98) 93 97.9 09/04/17 00:00 98.4 65 18 117/54 (75) 97 98.4 09/03/17 21:00 Room Air 09/03/17 20:00 99.3 64 18 113/52 (72) 94 99.3 09/03/17 16:00 98.1 65 19 121/51 (74) 97 98.1 Intake and Output 09/03/17 09/04/17 19:00 07:00 Intake Total 1180 ml 1240 ml Balance 1180 ml 1240 ml Intake Oral 480 ml 240 ml IV Total 700 ml 1000 ml # Voids 2 4 Laboratory Tests Test 09/04/17 06:45 White Blood Count 5.1 K/UL (4.8-10.8) Red Blood Count 3.38 M/UL (4.20-5.40) L Hemoglobin 11.2 G/DL (12.0-16.0) L Hematocrit 31.5 % (37.0-47.0) L Mean Corpuscular Volume 93 FL (80-99) Mean Corpuscular Hemoglobin 33.1 PG (27.0-31.0) H Mean Corpuscular Hemoglobin Concent 35.5 G/DL (32.0-36.0) Red Cell Distribution Width 11.7 % (11.6-14.8) Platelet Count 173 K/UL (150-450) Mean Platelet Volume 6.6 FL (6.5-10.1) Neutrophils (%) (Auto) 65.7 % (45.0-75.0) Lymphocytes (%) (Auto) 23.0 % (20.0-45.0) Monocytes (%) (Auto) 8.0 % (1.0-10.0) Eosinophils (%) (Auto) 2.2 % (0.0-3.0) Basophils (%) (Auto) 1.2 % (0.0-2.0) Sodium Level 140 MMOL/L (136-145) Potassium Level 3.5 MMOL/L (3.5-5.1) Chloride Level 111 MMOL/L (98-107) H Carbon Dioxide Level 20 MMOL/L (21-32) L Anion Gap 10 mmol/L (5-15) Blood Urea Nitrogen 16 mg/dL (7-18) Creatinine 1.5 MG/DL (0.55-1.30) H Estimat Glomerular Filtration Rate mL/min (>60) Glucose Level 96 MG/DL (74-106) Calcium Level 8.1 MG/DL (8.5-10.1) L Thyroid Stimulating Hormone (TSH) 4.567 uiU/mL (0.358-3.740) Free Thyroxine 1.06 NG/DL (0.76-1.46) Microbiology Date/Time Source Procedure Growth Status 09/02/17 20:15 Blood Blood Culture - Preliminary NO GROWTH AFTER 24 HOURS Resulted 09/02/17 19:55 Blood Blood Culture - Preliminary NO GROWTH AFTER 24 HOURS Resulted 09/03/17 13:10 Urine,Clean Catch Urine Culture - Preliminary NO GROWTH Resulted 09/02/17 22:30 Rectum VRE Culture - Final Enterococcus Faecalis - Vre Resulted 09/02/17 22:30 Rectum Pending Resulted Objective HEAD AND NECK: No JVD or carotid bruits. LUNGS: Clear. CARDIOVASCULAR: Regular S1 and S2 with no gallop or murmur. ABDOMEN: Soft and nontender. EXTREMITIES: No pitting edema. David Couch MD Sep 04, 2017 15:06
[2017-09-04 15:51] VITALS: BP 139/59
[2017-09-04] MEDS: Lisinopril 10mg tab ORAL SCH (17:56)
--- NOTE | 2017-09-04 18:24 | Cardiology Report ---
APPROVED REPORT EXAM: Two-dimensional and M-mode echocardiogram with Doppler and color Doppler. INDICATION Syncope M-Mode DIMENSIONS IVSd1.3 (0.7-1.1cm)Left Atrium (MM)3.8 (1.6-4.0cm) LVDd4.2 (3.5-5.6cm)Aortic Root2.7 (2.0-3.7cm) PWd1.2 (0.7-1.1cm)Aortic Cusp Exc.1.3 (1.5-2.0cm) IVSs1.7 cm LVDs2.5 (2.5-4.0cm) PWs2.0 cm Technically difficult study due to poor parasternal acoustical windows. Normal left ventricular chamber size, systolic function and wall motion to extent visualized. Left ventricular ejection fraction estimated to be 60-65 %. Moderate left ventricular hypertrophy by 2-D. No evidence of pericardial effusion. Possible Pleural effusion . All other cardiac chamber sizes are within normal limits. Heavily thickened aortic valve sclerosis with reduced cusp excursion. Heavily Thickened mitral valve leaflets with normal excursion. Mitral annulus and aortic root calcification. Normal pulmonic valve structure. IVC at normal size with physiologic collapse. A color flow and spectral Doppler study was performed and revealed: No aortic regurgitation. Peak aortic valve gradient is not correctly measrued and i have asked the tech to repeat aortic valve measurements as there is likley at least moderate aortic valve stenosis by visual estimation Trace mitral regurgitation. Mitral diastolic velocities suggest reduced left ventricular relaxation c/w mild LV diastolic dysfunction (Grade I ). Mild tricuspid regurgitation. Tricuspid systolic velocities suggests peak right ventricular systolic pressure of33 mmHg. Trace Pulmonic regurgitation present.
[2017-09-04 20:00] VITALS: BP 136/54
[2017-09-04] MEDS: Donepezil 10mg tab ORAL SCH (20:35)
[2017-09-04] MEDS: Cefepime HCl 500 MG in D5W 55 ML IVPB SCH (23:30)
[2017-09-05 00:06] VITALS: BP 128/57
[2017-09-05] MEDS ORDERED: Vancomycin 750mg/NS 250ml 250 ML IVPB SCH ×2 (02:00→03:00)
[2017-09-05 04:14] VITALS: BP 143/65
[2017-09-05] MEDS: Heparin 5000 units/ml inj SUBQ SCH ×2 (05:24→14:50)
[2017-09-05] MEDS: NovoLOG Insulin Flexpen SUBQ SCH ×2 (06:13→12:13)
[2017-09-05 07:54] LABS: ANION GAP 10 mmol/L (5-15); BLOOD UREA NITROGEN 12 mg/dL (7-18); CALCIUM 8.2 MG/DL (8.5-10.1); CARBON DIOXIDE 19 MMOL/L (21-32); CHLORIDE 111 MMOL/L (98-107); CREATININE 1.3 MG/DL (0.55-1.30); POTASSIUM 3.5 MMOL/L (3.5-5.1); SODIUM 140 MMOL/L (136-145)
[2017-09-05 08:00] VITALS: BP 134/66
[2017-09-05 10:03] VITALS: BP 130/61
--- NOTE | 2017-09-05 10:05 | Cardiology Report ---
APPROVED REPORT EKG Measurement Heart [id number] [id number] Normal sinus rhythm Nonspecific ST abnormality cannot exclude inferior ischemia clinical correlation recommended Abnormal ECG
[2017-09-05] MEDS: Aspirin Baby 81mg ORAL SCH (10:13)
[2017-09-05] MEDS: Amitiza 24mcg cap ORAL SCH (10:13)
--- NOTE | 2017-09-05 10:13 | Nephrology Progress Note ---
Assessment/Plan Assessment/Plan 1. VASHTI- due to hypotension - resolving, BP stable and Cr 1.3. OK for DC - Renal US neg, simple renal cysts 2. UTI/Sepsis- Abx mgmt per ID 3. Hypertensive - Norvasc and lisinopril 4. CAD- mgmt per Cardiology. 5. DVT prophylaxsis with heparin Plan for DC today with HH Subjective Date patient seen: Sep 05, 2017 Time patient seen: 10:07 ROS Limited/Unobtainable: No Allergies: Coded Allergies: No Known Allergies (Unverified , 09/02/17) All Systems: reviewed and negative except above Subjective Patient doing well. In no distress and ready for DC Objective Last 24 Hour Vital Signs Date Time Temp Pulse Resp B/P (MAP) Pulse Ox O2 Delivery O2 Flow Rate FiO2 09/05/17 10:03 65 130/61 (84) 09/05/17 08:00 98.0 18 134/66 (88) 64 98.0 09/05/17 04:14 97.5 66 18 143/65 (91) 96 97.5 09/05/17 00:06 98.6 64 18 128/57 (80) 96 98.6 09/04/17 20:00 98.8 67 18 136/54 (81) 95 98.8 09/04/17 17:56 139/59 09/04/17 15:51 97.5 68 18 139/59 (85) 97 97.5 09/04/17 11:31 97.5 79 18 161/77 (105) 97 97.5 Intake and Output 09/04/17 09/05/17 19:00 07:00 Intake Total 1600 ml 1365.000 ml Balance 1600 ml 1365.000 ml Intake Oral 1600 ml 360 ml IV Total 1005.000 ml # Voids 6 3 Laboratory Tests 09/05/17 01:40: Vancomycin Level Trough 2.9L 09/05/17 05:10: Sodium Level 140, Potassium Level 3.5, Chloride Level 111H, Carbon Dioxide Level 19L, Anion Gap 10, Blood Urea Nitrogen 12, Creatinine 1.3, Estimat Glomerular Filtration Rate , Glucose Level 123H, Calcium Level 8.2L Height (Feet): 5 Height (Inches): 4.00 Weight (Pounds): 110 General Appearance: WD/WN, no apparent distress EENT: PERRL/EOMI Neck: non-tender, normal alignment Cardiovascular: normal peripheral pulses, normal rate Respiratory/Chest: lungs clear, normal breath sounds Abdomen: normal bowel sounds, non tender, soft Edema: no edema noted Arm (L), no edema noted Arm (R), no edema noted Leg (L), no edema noted Leg (R), no edema noted Pedal (L), no edema noted Pedal (R), no edema noted Generalized Elvis Parnell M.D. Sep 05, 2017 10:13
[2017-09-05] MEDS: Lisinopril 10mg tab ORAL SCH (10:14)
--- NOTE | 2017-09-05 10:16 | Discharge Instructions ---
Discharge Instructions Discharge Instructions Services at Discharge: home health services Diet: 2 GM sodium (low sodium) Resume Normal Activity?: Yes Activity: light activity Pneumonia Vaccine: vaccine not indicated Influenza Vaccine (Nov to Apr): vaccine not indicated Follow Up Orders 1. DC with HH 2. Continue home Syed (DC Norvasc and Lisinopril) 3. F/U PCP 1 week For Congestive Heart Failure Reminder Report to your physician any weight gain of 5 pounds or more in one week. Elvis Parnell M.D. Sep 05, 2017 10:16
[2017-09-05] MEDS: Memantine 10mg tab ORAL SCH (10:18)
[2017-09-05 12:00] VITALS: BP 124/58
--- NOTE | 2017-09-05 12:11 | Consultation ---
History of Present Illness General Chief Complaint: Generalized Weakness Present Illness Allergies: Coded Allergies: No Known Allergies (Unverified , 09/02/17) Medication History Scheduled Amlodipine Bes/Olmesartan Med 10-40 Mg Tablet (Syed 10-40 Mg Tablet), 1 TAB ORAL DAILY, (Reported) Levetiracetam (Keppra), 500 MG ORAL EVERY 12 HOURS, (Reported) Linaclotide (Linzess), 290 MCG PO DAILY, (Reported) Lubiprostone (Amitiza*), 24 MCG ORAL EVERY 12 HOURS, (Reported) Memantine HCl/Donepezil HCl (Namzaric 28 mg-10 mg Capsule), 1 EACH PO DAILY, ( Reported) Sitagliptin Phos/Metformin Hcl (Janumet Xr 100-1,000 Mg Tablet), 1 TAB ORAL BEFORE DINNER, (Reported) Scheduled PRN Clonidine Hcl* (Catapres*), 0.2 MG ORAL Q6HR PRN for For High Blood Pressure, ( Reported) Patient History Healthcare decision maker Resuscitation status Full Code Advanced Directive on File Physical Exam Last 24 Hour Vital Signs Date Time Temp Pulse Resp B/P (MAP) Pulse Ox O2 Delivery O2 Flow Rate FiO2 09/05/17 10:14 130/61 09/05/17 10:14 65 130/61 09/05/17 10:03 65 130/61 (84) 09/05/17 09:00 Room Air 09/05/17 08:00 98.0 18 134/66 (88) 64 98.0 09/05/17 04:14 97.5 66 18 143/65 (91) 96 97.5 09/05/17 00:06 98.6 64 18 128/57 (80) 96 98.6 09/04/17 20:00 98.8 67 18 136/54 (81) 95 98.8 09/04/17 17:56 139/59 09/04/17 15:51 97.5 68 18 139/59 (85) 97 97.5 Intake and Output 09/04/17 09/05/17 19:00 07:00 Intake Total 1600 ml 1365.000 ml Balance 1600 ml 1365.000 ml Intake Oral 1600 ml 360 ml IV Total 1005.000 ml # Voids 6 3 Laboratory Tests Test 09/05/17 01:40 09/05/17 05:10 Vancomycin Level Trough 2.9 ug/mL (5.0-12.0) L Sodium Level 140 MMOL/L (136-145) Potassium Level 3.5 MMOL/L (3.5-5.1) Chloride Level 111 MMOL/L (98-107) H Carbon Dioxide Level 19 MMOL/L (21-32) L Anion Gap 10 mmol/L (5-15) Blood Urea Nitrogen 12 mg/dL (7-18) Creatinine 1.3 MG/DL (0.55-1.30) Estimat Glomerular Filtration Rate mL/min (>60) Glucose Level 123 MG/DL (74-106) H Calcium Level 8.2 MG/DL (8.5-10.1) L Height (Feet): 5 Height (Inches): 4.00 Weight (Pounds): 110 Medications Current Medications Medications (Trade) Dose Ordered Sig/Monica Route PRN Reason Start Time Stop Time Status Last Admin Dose Admin Acetaminophen (Tylenol) 650 mg Q4H PRN ORAL Mild Pain (Pain Scale 1-3) 09/03/17 11:00 10/02/17 10:59 Amlodipine Besylate (Norvasc) 10 mg DAILY ORAL 09/04/17 09:00 10/03/17 08:59 09/05/17 10:14 Aspirin (ASA) 81 mg DAILY ORAL 09/04/17 09:00 10/03/17 08:59 09/05/17 10:13 Cefepime HCl 500 mg/Dextrose 55 ml @ 110 mls/hr Q24H IVPB 09/03/17 23:30 09/10/17 23:29 09/04/17 23:30 Clonidine HCl (Catapres Tab) 0.1 mg Q2H PRN ORAL SBP > 170mmHg 09/04/17 15:00 10/04/17 14:59 Dextrose (Dextrose 50%) 25 ml STAT PRN IV Hypoglycemia 09/03/17 11:00 10/02/17 10:59 Dextrose (Dextrose 50%) 50 ml STAT PRN IV Hypoglycemia 09/03/17 11:00 10/02/17 10:59 Diphenhydramine HCl (Benadryl) 25 mg Q6H PRN ORAL Itching/Pruritis 09/03/17 11:00 10/02/17 10:59 Donepezil HCl (Aricept) 10 mg QHS ORAL 09/03/17 21:00 10/03/17 20:59 09/04/17 20:35 Heparin Sodium (Porcine) (Heparin 5000 units/ml) 5,000 units EVERY 8 HOURS SUBQ 09/03/17 14:00 10/02/17 21:59 09/05/17 05:24 Insulin Aspart (NovoLOG) BEFORE MEALS AND HS SUBQ 09/03/17 11:30 10/03/17 11:29 09/05/17 06:13 Levetiracetam (Keppra) 500 mg Q12HR ORAL 09/03/17 21:00 10/03/17 08:59 09/05/17 10:13 Lisinopril (Zestril) 10 mg BID ORAL 09/04/17 18:00 10/04/17 17:59 09/05/17 10:14 Lubiprostone (Amitiza) 24 mcg TWICE A DAY ORAL 09/03/17 18:00 10/03/17 08:59 09/05/17 10:13 Memantine (Namenda) 10 mg DAILY ORAL 09/04/17 09:00 10/03/17 08:59 09/05/17 10:18 Ondansetron HCl (Zofran) 4 mg Q6H PRN IVP Nausea & Vomiting 09/03/17 11:00 10/02/17 10:59 Sodium Chloride 1,000 ml @ 100 mls/hr Q10H IVLG 09/03/17 10:30 10/02/17 22:59 09/04/17 20:49 Vancomycin HCl (Vanco rx to dose) 1 ea DAILY PRN MISC Per rx protocol 09/04/17 09:00 10/02/17 22:44 Vancomycin/Sodium Chloride 250 ml @ 166.667 mls/hr Q24H IVPB 09/05/17 03:00 09/10/17 02:59 09/05/17 03:17 Alysha Garvey MD Sep 05, 2017 12:11
--- NOTE | 2017-09-05 13:56 | Infectious Diseases Prog Note ---
Assessment/Plan Problems: (1) Bronchitis Assessment & Plan: resolved with cefepime empirically , will stop since urine culture in negative with no bacterial growth (2) UTI (urinary tract infection) Assessment & Plan: treated with cefepime , culture is negative (3) Sepsis Assessment & Plan: ruled out with negative blood culture , will stop vancomycin and cefepime empirically (4) Hypotension Assessment & Plan: with no evidence of sepsis and negative blood culture, suspect due to dehydration , will stop antibiotics (5) Episode of generalized weakness Assessment & Plan: improved, recommend PT/OT Subjective Constitutional: Reports: no symptoms HEENT: Reports: no symptoms Respiratory: Reports: no symptoms Breasts: Reports: no symptoms Cardiovascular: Reports: no symptoms Gastrointestinal/Abdominal: Reports: no symptoms Genitourinary: Reports: no symptoms Neurologic: Reports: no symptoms Psychiatric: Reports: no symptoms Skin: Reports: no symptoms Endocrine: Reports: no symptoms Hematologic: Reports: no symptoms Musculoskeletal: Reports: no symptoms Allergies: Coded Allergies: No Known Allergies (Unverified , 09/02/17) Objective Vital Signs Last 24 Hour Vital Signs Date Time Temp Pulse Resp B/P (MAP) Pulse Ox O2 Delivery O2 Flow Rate FiO2 09/05/17 12:00 98.2 65 18 124/58 (80) 98.2 09/05/17 10:14 130/61 09/05/17 10:14 65 130/61 09/05/17 10:03 65 130/61 (84) 09/05/17 09:00 Room Air 09/05/17 08:00 98.0 18 134/66 (88) 64 98.0 09/05/17 04:14 97.5 66 18 143/65 (91) 96 97.5 09/05/17 00:06 98.6 64 18 128/57 (80) 96 98.6 09/04/17 20:00 98.8 67 18 136/54 (81) 95 98.8 09/04/17 17:56 139/59 09/04/17 15:51 97.5 68 18 139/59 (85) 97 97.5 Height (Feet): 5 Height (Inches): 4.00 Weight (Pounds): 110 General Appearance: WD/WN, no acute distress HEENT: normocephalic, atraumatic, anicteric, mucous membranes moist, PERRL Respiratory/Chest: chest wall non-tender, lungs clear, normal breath sounds, no respiratory distress, no accessory muscle use Cardiovascular: normal peripheral pulses, normal rate, regular rhythm, no gallop/murmur, no JVD Abdomen: normal bowel sounds, soft, non tender, no organomegaly, non distended , no mass, no scars Extremities: no cyanosis, no clubbing Skin: no rash, no lesions, no ulcers Neurologic/Psychiatric: alert, responsive Lymphatic: no neck adenopathy, no groin adenopathy Microbiology Date/Time Source Procedure Growth Status 09/02/17 20:15 Blood Blood Culture - Preliminary NO GROWTH AFTER 48 HOURS Resulted 09/02/17 19:55 Blood Blood Culture - Preliminary NO GROWTH AFTER 48 HOURS Resulted 09/02/17 22:30 Nasal Nares MRSA Culture - Final NO METHICILLIN RESISTANT STAPH AUREUS... Complete 09/03/17 13:10 Urine,Clean Catch Urine Culture - Preliminary NO GROWTH AFTER 24 HOURS Resulted 09/02/17 22:30 Rectum VRE Culture - Final Enterococcus Faecalis - Vre Complete 09/02/17 22:30 Rectum - Final NO CARBAPENEM-RESISTANT ENTEROBACTERI... Complete Laboratory Tests Test 09/05/17 01:40 09/05/17 05:10 Vancomycin Level Trough 2.9 ug/mL (5.0-12.0) L Sodium Level 140 MMOL/L (136-145) Potassium Level 3.5 MMOL/L (3.5-5.1) Chloride Level 111 MMOL/L (98-107) H Carbon Dioxide Level 19 MMOL/L (21-32) L Anion Gap 10 mmol/L (5-15) Blood Urea Nitrogen 12 mg/dL (-18) Creatinine 1.3 MG/DL (0.55-1.30) Estimat Glomerular Filtration Rate mL/min (>60) Glucose Level 123 MG/DL (74-106) H Calcium Level 8.2 MG/DL (8.5-10.1) L Current Medications Medications (Trade) Dose Ordered Sig/Monica Route PRN Reason Start Time Stop Time Status Last Admin Dose Admin Acetaminophen (Tylenol) 650 mg Q4H PRN ORAL Mild Pain (Pain Scale 1-3) 09/03/17 11:00 10/02/17 10:59 Amlodipine Besylate (Norvasc) 10 mg DAILY ORAL 09/04/17 09:00 10/03/17 08:59 09/05/17 10:14 Aspirin (ASA) 81 mg DAILY ORAL 09/04/17 09:00 10/03/17 08:59 09/05/17 10:13 Cefepime HCl 500 mg/Dextrose 55 ml @ 110 mls/hr Q24H IVPB 09/03/17 23:30 09/10/17 23:29 09/04/17 23:30 Clonidine HCl (Catapres Tab) 0.1 mg Q2H PRN ORAL SBP > 170mmHg 09/04/17 15:00 10/04/17 14:59 Dextrose (Dextrose 50%) 25 ml STAT PRN IV Hypoglycemia 09/03/17 11:00 10/02/17 10:59 Dextrose (Dextrose 50%) 50 ml STAT PRN IV Hypoglycemia 09/03/17 11:00 10/02/17 10:59 Diphenhydramine HCl (Benadryl) 25 mg Q6H PRN ORAL Itching/Pruritis 09/03/17 11:00 10/02/17 10:59 Donepezil HCl (Aricept) 10 mg QHS ORAL 09/03/17 21:00 10/03/17 20:59 09/04/17 20:35 Heparin Sodium (Porcine) (Heparin 5000 units/ml) 5,000 units EVERY 8 HOURS SUBQ 09/03/17 14:00 10/02/17 21:59 09/05/17 05:24 Insulin Aspart (NovoLOG) BEFORE MEALS AND HS SUBQ 09/03/17 11:30 10/03/17 11:29 09/05/17 12:13 Levetiracetam (Keppra) 500 mg Q12HR ORAL 09/03/17 21:00 10/03/17 08:59 09/05/17 10:13 Lisinopril (Zestril) 10 mg BID ORAL 09/04/17 18:00 10/04/17 17:59 09/05/17 10:14 Lubiprostone (Amitiza) 24 mcg TWICE A DAY ORAL 09/03/17 18:00 10/03/17 08:59 09/05/17 10:13 Memantine (Namenda) 10 mg DAILY ORAL 09/04/17 09:00 10/03/17 08:59 09/05/17 10:18 Ondansetron HCl (Zofran) 4 mg Q6H PRN IVP Nausea & Vomiting 09/03/17 11:00 10/02/17 10:59 Sodium Chloride 1,000 ml @ 100 mls/hr Q10H IVLG 09/03/17 10:30 10/02/17 22:59 09/04/17 20:49 Vancomycin HCl (Vanco rx to dose) 1 ea DAILY PRN MISC Per rx protocol 09/04/17 09:00 10/02/17 22:44 Vancomycin/Sodium Chloride 250 ml @ 166.667 mls/hr Q24H IVPB 09/05/17 03:00 09/10/17 02:59 09/05/17 03:17 Nandini Sosa M.D. Sep 05, 2017 13:55
--- NOTE | 2017-09-05 14:56 | Cardiac Electrophysiology PN ---
Assessment/Plan Assessment/Plan 1. Generalized weakness. Ruled out for myocardial infarction. Likely due to dehydration due to heat stroke. 2. Hypertension. On Norvasc 10 mg daily and lisinopril 10 daily and prn Clonidine 3. Diabetes, on insulin. 4. History of seizures, on Keppra. 5. History of dementia, on Aricept. 6. Bronchitis and UTI. On cefepime per Dr. Sosa. MIRTHA RN OK to DC Subjective Subjective No CP or SOB. BP better. DC planning in progress Objective Last 24 Hour Vital Signs Date Time Temp Pulse Resp B/P (MAP) Pulse Ox O2 Delivery O2 Flow Rate FiO2 09/05/17 12:00 98.2 65 18 124/58 (80) 98.2 09/05/17 10:14 130/61 09/05/17 10:14 65 130/61 09/05/17 10:03 65 130/61 (84) 09/05/17 09:00 Room Air 09/05/17 08:00 98.0 18 134/66 (88) 64 98.0 09/05/17 04:14 97.5 66 18 143/65 (91) 96 97.5 09/05/17 00:06 98.6 64 18 128/57 (80) 96 98.6 09/04/17 20:00 98.8 67 18 136/54 (81) 95 98.8 09/04/17 17:56 139/59 09/04/17 15:51 97.5 68 18 139/59 (85) 97 97.5 Intake and Output 09/04/17 09/05/17 19:00 07:00 Intake Total 1600 ml 1365.000 ml Balance 1600 ml 1365.000 ml Intake Oral 1600 ml 360 ml IV Total 1005.000 ml # Voids 6 3 Laboratory Tests Test 09/05/17 01:40 09/05/17 05:10 Vancomycin Level Trough 2.9 ug/mL (5.0-12.0) L Sodium Level 140 MMOL/L (136-145) Potassium Level 3.5 MMOL/L (3.5-5.1) Chloride Level 111 MMOL/L (98-107) H Carbon Dioxide Level 19 MMOL/L (21-32) L Anion Gap 10 mmol/L (5-15) Blood Urea Nitrogen 12 mg/dL (7-18) Creatinine 1.3 MG/DL (0.55-1.30) Estimat Glomerular Filtration Rate mL/min (>60) Glucose Level 123 MG/DL (74-106) H Calcium Level 8.2 MG/DL (8.5-10.1) L Microbiology Date/Time Source Procedure Growth Status 09/02/17 20:15 Blood Blood Culture - Preliminary NO GROWTH AFTER 48 HOURS Resulted 09/02/17 19:55 Blood Blood Culture - Preliminary NO GROWTH AFTER 48 HOURS Resulted 09/02/17 22:30 Nasal Nares MRSA Culture - Final NO METHICILLIN RESISTANT STAPH AUREUS... Complete 09/03/17 13:10 Urine,Clean Catch Urine Culture - Preliminary NO GROWTH AFTER 24 HOURS Resulted 09/02/17 22:30 Rectum VRE Culture - Final Enterococcus Faecalis - Vre Complete 09/02/17 22:30 Rectum - Final NO CARBAPENEM-RESISTANT ENTEROBACTERI... Complete Objective HEAD AND NECK: No JVD or carotid bruits. LUNGS: Clear. CARDIOVASCULAR: Regular S1 and S2 with no gallop or murmur. ABDOMEN: Soft and nontender. EXTREMITIES: No pitting edema. David Couch MD Sep 05, 2017 14:56
--- NOTE | 2017-09-07 13:30 | Discharge Summary ---
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 Patient was brought to emergency room for evaluation. Upon evaluation she was found to be hypotensive. Vital signs otherwise revealed no fever, stable pulse oximetry on room air. Patient started on the IV hydration. Laboratory workup revealed no leukocytosis, stable hemoglobin and hematocrit Noted evidence of renal failure with BUN 26 creatinine 2.1 , stable electrolytes . Troponin negative EKG revealed sinus rhythm, with nonspecific anterior abnormalities. Chest x-ray revealed peribronchial thickening without infiltrate. Lactic acid 1.6. Urinalysis positive for leukocytes esterase and occasional bacteria. Patient admitted with diagnosis of hypotension, possible sepsis, possible UTI. CONSULTANTS: shoe polisher Dr. Iza MENDOSA specialist Dr. Sosa psychiatrist [facility] COURSE: Patient admitted. Patient started on the IV fluids. Infectious disease and shoe polisher consults were requested. Patient started on empiric antibiotics Renal parameters and electrolytes were closely monitored . Nephrotoxins were avoided . Electrolytes were corrected as needed. Renal ultrasound was done to rule out obstructive uropathy and revealed no evidence of hydronephrosis. It showed bilateral renal cortical cysts. Serial troponin were negative Further cardiac monitoring revealed no acute ischemic changes Patient was ruled out for acute PR As blood pressure improved, patient was started on calcium channel kristin and TESS inhibitor Echocardiogram revealed ejection preserved ejection fraction of 60-65%. At least moderate aortic valve stenosis. Supplemental oxygen provided as needed to keep pulse oximetry above 92% Pulmonary toilet provided as needed. DVT prophylaxis provided Per shoe polisher , generalized weakness was likely secondary to hypotension and acute kidney injury CT of the abdomen and pelvis revealed cholelithiasis without evidence of cholecystitis or dilated common bile duct. Blood culture negative , urine culture negative Antibiotics stopped . Blood sugar was managed with sliding scale of insulin . Diabetic diet continued. Seizure precautions were maintained . No seizure activity while in the hospital. Anticonvulsant regimen was continued Renal parameters stabilized; prior to discharge BUN from 26 down to 12 and creatinine from 2.1 down to 1.3 . Supportive care provided Bowel regimen instituted. Pain management was addressed. Patient was working with physical and occupational therapists. Patient was on stable for transfer home with home health services to follow. FINAL DIAGNOSES: Possible sepsis Possible UTI Bronchitis Hypotension ,resolved Acute kidney injury , likely due to hypotension , resolving Hypertension Coronary artery disease Heat stroke Diabetes mellitus Seizure disorder Dementia DISCHARGE MEDICATIONS: See Medication Reconciliation list. DISCHARGE INSTRUCTIONS: Patient was discharged home with home health services to follow. Follow up with primary care provider in one week. I have been assigned to dictate discharge summary for this account. I was not involved in the patient's management. Mishel Duarte NP Sep 07, 2017 13:30
== END 2017-09-05 15:30 | disposition home health service (06) | DRG 872 ==
LOC: EDBD 18:52 → EMR 19:35 → CANBEDREQ 20:16 → 2W 21:27 → EDBEDREQ 21:49 → 2W 22:43 → 4W 09-03 10:44
DX: A41.9 Sepsis, unspecified organism (principal); T67.0XXA Heatstroke and sunstroke, initial encounter; N39.0 Urinary tract infection, site not specified; N17.9 Acute kidney failure, unspecified; I25.10 Atherosclerotic heart disease of native coronary artery without angina pectoris; E11.9 Type 2 diabetes mellitus without complications; I10 Essential (primary) hypertension; Z79.4 Long term (current) use of insulin; J40 Bronchitis, not specified as acute or chronic; G40.909 Epilepsy, unspecified, not intractable, without status epilepticus; R53.1 Weakness; E86.0 Dehydration; X58.XXXA Exposure to other specified factors, initial encounter
CPT/HCPCS: 36415; 71045; 74176; 76770; 80048; 80053; 80202; 80299; 81003; 82550; 82553; 82962; 83605; 83735; 84100; 84439; 84443; 84484; 85025; 87040; 87081; 87086; 93005; 93306; 99285; J1815